=== PATIENT | female | born 1960 | race Caucasian/White ===

== ENCOUNTER 2017-01-18 11:52 | Inpatient (IN) | payer OTHER ==
[2017-01-18 14:08] VITALS: BMI 26.6
--- NOTE | 2017-01-18 16:31 | HP ---
CIWA Score - CIWA Score Nausea/Vomitin Muscle Tremors: 3 Anxiety: 3 Agitation: 2 Paroxysmal Sweats: 1-Minimal Palms Moist Orientation: 0-Oriented Tacttile Disturbances: 2-Mild Itch/Numbness/Burn Auditory Disturbances: 2-Mild Harshness/Frighten Visual Disturbances: 2-Mild Sensitivity Headache: 2-Mild CIWA-Ar Total Score: 20 Admission ROS BHS - HPI Chief Complaint: i need help to stop drinking alcohol Allergies/Adverse Reactions: Allergies Allergy/AdvReac Type Severity Reaction Status Date / Time No Known Drug Allergies Allergy Verified 01/18/17 17:10 strawberry AdvReac Severe Vomiting Verified 01/18/17 17:10 History of Present Illness: this 56 years old female with alcohol and marijuana dependence,seeking detox, last detox 07/05 [facility] hypertension,hypercholesterolemia ,borderdined diabetes mellitus no significant period of sobriety Exam Limitations: No Limitations - Ebola screening Have you traveled outside of the country in the last 21 days: No Have you had contact with anyone from an Ebola affected area: No Have you been sick,other than usual withdrawal symptoms: No - Review of Systems Constitutional: Loss of Appetite, Malaise, Night Sweats, Changes in sleep, Weakness EENT: reports: Nose Congestion Respiratory: reports: No Symptoms reported Cardiac: reports: Palpitations GI: reports: Diarrhea, Nausea, Vomiting, Abdominal cramping : reports: No Symptoms Reported Musculoskeletal: reports: Back Pain, Muscle Pain Integumentary: reports: Dryness Neuro: reports: Headache, Tremors Endocrine: reports: No Symptoms Reported Hematology: reports: No Symptoms Reported Psychiatric: reports: other Patient History - Patient Medical History Hx Anemia: No Hx Asthma: No Hx Chronic Obstructive Pulmonary Disease (COPD): No Hx Cancer: No Hx Cardiac Disorders: Yes (Cardiac cath 11/03 in [facility]) Hx Congestive Heart Failure: No Hx Hypertension: Yes (on med) Hx Hypercholesterolemia: Yes Hx Seizures: No Hx Diabetes: No Hx Gastrointestinal Disorders: No Hx Liver Disease: No Hx Genitourinary Disorders: No Hx Sexually Transmitted Disorders: No Hx Renal Disease (ESRD): No Hx Thyroid Disease: No Hx Human Immunodeficiency Virus (HIV): No (negative 12/04 last) Hx Hepatitis C: No Hx Depression: Yes Hx Suicide Attempt: No Hx Bipolar Disorder: No Hx Schizophrenia: No Other Medical History: no suicidal,no homicidal - Patient Surgical History Past Surgical History: Yes Hx Appendectomy: Yes (in 1982) Other Surgical History: microsurgery of left index in 2003 - PPD History Previous Implant?: Yes Documented Results: Negative w/o proof Implanted On Prior [facility] Admission?: No PPD to be Administered?: Yes - Reproductive History Patient is a Female of Child Bearing Age (11 -55 yrs old): No Patient : No - Smoking Cessation Smoking history: Current every day smoker Have you smoked in the past 12 months: Yes Aproximately how many cigarettes per day: 20 Hx Chewing Tobacco Use: No Initiated information on smoking cessation: Yes 'Breaking Loose' booklet given: 01/18/17 - Substance & Tx. History Hx Alcohol Use: Yes Hx Substance Use: Yes Substance Use Type: Alcohol, Marijuana Hx Substance Use Treatment: Yes (07/05 [facility]) - Substances Abused Alcohol Route: Oral Frequency: Daily Amount used: FIFTH ULISES Age of first use: 46 Date of Last Use: 01/17/17 Marijuana/Hashish Route: Smoking Frequency: 3-6 times per week Amount used: 1/2 BLUNT Age of first use: 12 Date of Last Use: 01/11/17 Family Disease History - Family Disease History Family History: Denies Admission Physical Exam S - Vital Signs Vital Signs: Vital Signs - 24 hr 01/18/17 14:04 Temperature 96.4 F L Pulse Rate 93 H Respiratory 20 Rate Blood Pressure 145/80 - Physical General Appearance: Yes: Moderate Distress, Tremorous, Irritable, Anxious HEENTM: Yes: Normocephalic, MELYSSA, Pharynx Normal, Nasal Congestion Respiratory: Yes: Lungs Clear, Normal Breath Sounds, No Respiratory Distress Neck: Yes: Within Normal Limits, Supple, Trachea in good position Breast: Yes: Breast Exam Deferred Cardiology: Yes: Within Normal Limits, Regular Rhythm, Regular Rate, S1, S2 Abdominal: Yes: Within Normal Limits, Normal Bowel Sounds, Non Tender, Flat, Soft Genitourinary: Yes: Within Normal Limits Back: Yes: Muscle Spasm Musculoskeletal: Yes: full range of Motion, Back pain, Muscle Pain Extremities: Yes: Normal Range of Motion, Tremors Neurological: Yes: dixonac operator II-XII NML intact, Alert, Motor Strength 5/5 Integumentary: Yes: Dry Lymphatic: Yes: Within Normal Limits - Diagnostic (1) Alcohol dependence with uncomplicated withdrawal Current Visit: Yes Status: Acute (2) Cannabis dependence Current Visit: Yes Status: Acute (3) Nicotine dependence Current Visit: Yes Status: Acute (4) Essential hypertension Current Visit: Yes Status: Acute (5) Hypercholesterolemia Current Visit: Yes Status: Acute (6) Depression Current Visit: Yes Status: Acute (7) Borderline diabetes mellitus Current Visit: Yes Status: Acute (8) History of appendectomy Current Visit: Yes Status: Acute Cleared for Admission S - Detox or Rehab [facility] Level of Care: Medically Managed Detox Regimen/Protocol: Librium [facility] Breath Alcohol Content Breath Alcohol Content: 0 Urine Pregancy Test - Result Urine Test Results: Negative- NO Line Present Urine Drug Screen - Results Drug Screen Negative: No Urine Drug Screen Results: THC-Marijuana
[2017-01-18] MEDS ORDERED: ACETAMINOPHEN 325 MG TABLET (FP) PO PRN (16:42)
[2017-01-18] MEDS ORDERED: MAG HYDROX/AL HYDROX/SIMETH 30 ML UNIT-DOSE CUP PO PRN (16:42)
[2017-01-18] MEDS ORDERED: hydrOXYzine PAMOATE 50 MG CAPSULE (FP) PO PRN (16:42)
[2017-01-18] MEDS ORDERED: chlordiazePOXIDE HCL 25 MG CAPSULE PO PRN (16:42)
[2017-01-18] MEDS ORDERED: P-EPHED 60MG/TRIPROLIDI 2.5MG TABLET PO PRN (16:42)
[2017-01-18] MEDS ORDERED: LOPERAMIDE HCL 2 MG CAPSULE PO PRN (16:42)
[2017-01-18] MEDS ORDERED: diphenhydrAMINE HCL 50 MG CAPSULE PO PRN (16:42)
[2017-01-18] MEDS ORDERED: MAGNESIUM HYDROX 2400MG/30ML ORAL SUSPENSION 30 ML CUP PO PRN (16:42)
[2017-01-18] MEDS ORDERED: MAGNESIUM CITRATE 300 ML BOTTLE PO PRN (16:42)
[2017-01-18] MEDS ORDERED: guaiFENesin/D-METHORPHAN HB 10 ML UNIT-DOSE CUPS PO PRN (16:42)
[2017-01-18] MEDS ORDERED: IBUPROFEN 400 MG TABLET (FP) PO PRN (16:42)
[2017-01-18] MEDS ORDERED: MENTHOL/PHENOL 1 EACH UD MM PRN (16:42)
[2017-01-18] MEDS ORDERED: chlordiazePOXIDE HCL 25 MG CAPSULE PO ONE (17:45)
[2017-01-18] MEDS: METOPROLOL TARTRATE 50 MG TABLET (FP) PO SCH (22:26)
[2017-01-18] MEDS: THIAMINE HCL 100 MG TABLET (FP) PO SCH (22:26)
[2017-01-18] MEDS: chlordiazePOXIDE HCL 25 MG CAPSULE PO SCH (22:27)
[2017-01-19] MEDS: chlordiazePOXIDE HCL 25 MG CAPSULE PO SCH ×4 (05:34→22:25)
--- NOTE | 2017-01-19 09:55 | EKG ---
Test Reason : Blood Pressure : / mmHG Vent. Rate : 074 BPM Atrial Rate : 074 BPM P-R Int : 164 ms QRS Dur : 074 ms QT Int : 416 ms P-R-T Axes : 052 049 054 degrees QTc Int : 461 ms NORMAL SINUS RHYTHM NORMAL ECG NO PREVIOUS ECGS AVAILABLE Confirmed by ALISSON PEÑA MD ([id number]) on 01/19/2017 9:54:28 AM Referred By: Confirmed By:ALISSON PEÑA MD
[2017-01-19 10:23] LABS: MCH 34.3 pg (25.7-33.7); MCHC 33.8 g/dl (32.0-36.0); MEAN CELL VOLUME 101.4 fl (80-96); MEAN PLT VOLUME 8.6 fl (7.5-11.1); PLATELET COUNT 168 K/MM3 (134-434); RDW 16.8 % (11.6-15.6); WHITE BLOOD COUNT 5.7 K/mm3 (4.0-10.0)
[2017-01-19] MEDS: PRENATAL VITAMINS W/ FOLIC ACID TABLET (FP) PO SCH (10:47)
[2017-01-19] MEDS: METOPROLOL TARTRATE 50 MG TABLET (FP) PO SCH ×2 (10:48→22:25)
[2017-01-19] MEDS: PANTOPRAZOLE 40 MG TABLET (FP) PO SCH (10:48)
[2017-01-19] MEDS: ASPIRIN 81 MG CHEWABLE TABLETS PO SCH (10:48)
[2017-01-19 10:55] LABS: ALBUMIN 4.1 g/dl (3.4-5.0); ALK PHOS 112 U/L (45-117); ANION GAP 12 (8-16); BILIRUBIN,TOTAL 0.9 mg/dL (0.2-1.0); CALCIUM 9.4 mg/dL (8.5-10.1); CO2 27 mmol/L (21-32); COCKROFT - GAULT 95.5825; CREATININE 0.8 mg/dL (0.55-1.02); GLUCOSE,RANDOM 130 mg/dL (74-106); SGOT/AST 50 U/L (15-37); SGPT/ALT 41 U/L (12-78); TOT PROT 8.3 g/dl (6.4-8.2)
--- NOTE | 2017-01-19 11:22 | PN ---
S CIWA - CIWA Score Nausea/Vomitin-No Nausea/No Vomiting Muscle Tremors: 4-Moderate,w/Arms Extend Anxiety: 3 Agitation: 4-Moderately Restless Paroxysmal Sweats: 3 Orientation: 0-Oriented Tacttile Disturbances: 0-None Auditory Disturbances: 0-None Visual Disturbances: 0-None Headache: 0-None Present CIWA-Ar Total Score: 14 BHS Progress Note (SOAP) Subjective: right shoulder discomfort sweats interrupted sleep anxiety Objective: 01/19/17 11:20 Vital Signs Temperature 98.1 F 01/19/17 10:19 Pulse Rate 93 H 01/19/17 10:19 Respiratory Rate 16 01/19/17 10:19 Blood Pressure 143/87 01/19/17 10:19 O2 Sat by Pulse Oximetry (%) Laboratory Tests 01/19/17 01/19/17 01/19/17 05:50 06:00 06:00 WBC 5.7 RBC 4.11 Hgb 14.1 Hct 41.7 MCV 101.4 H MCHC 33.8 RDW 16.8 H Plt Count 168 MPV 8.6 Sodium 137 Potassium 4.0 Chloride 98 Carbon Dioxide 27 Anion Gap 12 BUN 10 Creatinine 0.8 Creat Clearance w eGFR > 60 POC Glucometer 132 Random Glucose 130 H Calcium 9.4 Total Bilirubin 0.9 AST 50 H ALT 41 Alkaline Phosphatase 112 Total Protein 8.3 H Albumin 4.1 labs pending awake/alert ambulating no acute distress Assessment: 01/19/17 11:21 withdrawal sx Plan: continue detox increase fluids motrin/tylenol prn analgesic balm
[2017-01-19] MEDS: METHYL SALICYLATE/MENTHOL OINT 30 GM TUBE TP SCH ×2 (12:06→22:25)
--- NOTE | 2017-01-19 18:06 | CONSULT ---
[facility] Psychiatric Consult - Data Date of interview: 01/19/17 Admission source: [facility] Identifying data: First admission to [facility] for this 56 y/o female seeking detox treatment for alcohol and marijuana dependence.Patient is (for past eleven years) without children,domiciled and currently employed. Substance Abuse History: - Smoking Cessation. Smoking history: Current every day smoker. Have you smoked in the past 12 months: Yes. Aproximately how many cigarettes per day: 20. Hx Chewing Tobacco Use: No. Initiated information on smoking cessation: Yes. 'Breaking Loose' booklet given: 01/18/17. - Substance & Tx. History. Hx Alcohol Use: Yes. Hx Substance Use: Yes. Substance Use Type : Alcohol, Marijuana. Hx Substance Use Treatment: Yes (07/05 [facility]). - Substances Abused. Alcohol. Route: Oral. Frequency: Daily. Amount used: FIFTH ULISES. Age of first use: 46. Date of Last Use: 01/17/17. Marijuana/ Hashish. Route: Smoking. Frequency: 3-6 times per week. Amount used: 1/2 BLUNT. Age of first use: 12. Date of Last Use: 01/11/17. Confirmed by the patient. Medical History: Diabetes mellitus (borderline),hypertension, hypercholesterolemia and a recent history of cardiac catheterization (at [facility] on 10/2016). Psychiatric History: No reported history of psychiatric hospitalizations (CPEP visits at [facility] in the context of alcohol intoxication/altered mental status).Ms Omer admits to a past history of OPD care to address depression/ anxiety.She used to be on celexa,buspirone and vistaril.Patient used to be followed up at the [facility] OPD clinic.Stopped several months ago.She ,however,indicates that this regimen was beneficial and,in this interview,she requests to resume celexa and buspar.Survey of recent pharmacy claims confirms previous scripts for both drugs.No history of suicide attempts. Physical/Sexual Abuse/Trauma History: Patient denies. Additional Comment: Urine Drug Screen Results: THC-Marijuana.Noted. Mental Status Exam - Mental Status Exam Alert and Oriented to: Time, Place, Person Cognitive Function: Good Patient Appearance: Well Groomed Mood: Hopeful, Euthymic Affect: Appropriate, Normal Range Patient Behavior: Fatigued, Appropriate, Cooperative Speech Pattern: Clear Voice Loudness: Normal Thought Process: Goal Oriented Thought Disorder: Not Present Hallucinations: Denies Suicidal Ideation: Denies Homicidal Ideation: Denies Insight/Judgement: Fair Sleep: Poorly, Difficulty falling asleep Appetite: Good Muscle strength/Tone: Normal Gait/Station: Normal Psychiatric Findings - Problem List (Smock 1, 2,3) (1) Alcohol dependence with uncomplicated withdrawal Current Visit: Yes Status: Acute (2) Cannabis dependence Current Visit: Yes Status: Acute (3) Nicotine dependence Current Visit: Yes Status: Acute (4) Substance induced mood disorder Current Visit: Yes Status: Acute (5) Mood disorder Current Visit: Yes Status: Chronic (6) Borderline diabetes mellitus Current Visit: Yes Status: Chronic (7) Essential hypertension Current Visit: Yes Status: Chronic (8) History of appendectomy Current Visit: No Status: Chronic (9) Hypercholesterolemia Current Visit: Yes Status: Chronic - Initial Treatment Plan Initial Treatment Plan: Psychoeducation.Detoxification.Medications : celexa 10 mg po daily + buspar 5 mg po bid.Side effects/benefits discussed with the patient.She agrees to follow this plan of care.Observation.
[2017-01-19] MEDS: ZOLPIDEM TARTRATE 5 MG TABLET PO PRN (22:25)
[2017-01-19] MEDS: THIAMINE HCL 100 MG TABLET (FP) PO SCH (22:25)
[2017-01-19] MEDS: busPIRone HCL 5 MG TABLET PO SCH (22:26)
[2017-01-20] MEDS: chlordiazePOXIDE HCL 25 MG CAPSULE PO SCH ×3 (05:52→17:44)
[2017-01-20] MEDS: PRENATAL VITAMINS W/ FOLIC ACID TABLET (FP) PO SCH (10:42)
[2017-01-20] MEDS: ASPIRIN 81 MG CHEWABLE TABLETS PO SCH (10:42)
[2017-01-20] MEDS: METOPROLOL TARTRATE 50 MG TABLET (FP) PO SCH ×2 (10:42→22:25)
[2017-01-20] MEDS: CITALOPRAM HYDROBROMIDE 10 MG TABLET (FP) PO SCH (10:42)
[2017-01-20] MEDS: PANTOPRAZOLE 40 MG TABLET (FP) PO SCH (10:42)
[2017-01-20] MEDS: busPIRone HCL 5 MG TABLET PO SCH ×2 (10:42→22:25)
[2017-01-20] MEDS: METHYL SALICYLATE/MENTHOL OINT 30 GM TUBE TP SCH ×2 (10:44→22:28)
--- NOTE | 2017-01-20 13:48 | PN ---
S CIWA - CIWA Score Nausea/Vomitin-No Nausea/No Vomiting Muscle Tremors: 3 Anxiety: 4-Mod. Anxious/Guarded Agitation: 3 Paroxysmal Sweats: 3 Orientation: 0-Oriented Tacttile Disturbances: 0-None Auditory Disturbances: 0-None Visual Disturbances: 0-None Headache: 0-None Present CIWA-Ar Total Score: 13 BHS Progress Note (SOAP) Subjective: Anxiety,tremors,sweating,interrupted sleep,restless Objective: 01/20/17 13:47 Vital Signs - 8 hr 01/20/17 01/20/17 06:51 10:00 Temperature 98.3 F 98.1 F Pulse Rate 79 97 H Respiratory 18 18 Rate Blood Pressure 103/67 125/94 Laboratory Tests 01/19/17 01/19/17 01/19/17 05:50 06:00 06:00 WBC 5.7 RBC 4.11 Hgb 14.1 Hct 41.7 MCV 101.4 H MCHC 33.8 RDW 16.8 H Plt Count 168 MPV 8.6 Sodium 137 Potassium 4.0 Chloride 98 Carbon Dioxide 27 Anion Gap 12 BUN 10 Creatinine 0.8 Creat Clearance w eGFR > 60 POC Glucometer 132 Random Glucose 130 H Calcium 9.4 Total Bilirubin 0.9 AST 50 H ALT 41 Alkaline Phosphatase 112 Total Protein 8.3 H Albumin 4.1 RPR Titer 01/19/17 01/19/17 01/20/17 06:00 16:25 05:51 WBC RBC Hgb Hct MCV MCHC RDW Plt Count MPV Sodium Potassium Chloride Carbon Dioxide Anion Gap BUN Creatinine Creat Clearance w eGFR POC Glucometer 138 147 Random Glucose Calcium Total Bilirubin AST ALT Alkaline Phosphatase Total Protein Albumin RPR Titer Nonreactive labs noted Assessment: 01/20/17 13:47 Withdrawal sx. Plan: Continue detox
[2017-01-20] MEDS: chlordiazePOXIDE 5 MG CAPSULE PO SCH (22:24)
[2017-01-20] MEDS: THIAMINE HCL 100 MG TABLET (FP) PO SCH (22:25)
[2017-01-21] MEDS: chlordiazePOXIDE 5 MG CAPSULE PO SCH ×3 (05:58→17:15)
[2017-01-21] MEDS: PRENATAL VITAMINS W/ FOLIC ACID TABLET (FP) PO SCH (10:27)
[2017-01-21] MEDS: METOPROLOL TARTRATE 50 MG TABLET (FP) PO SCH ×2 (10:27→22:25)
[2017-01-21] MEDS: CITALOPRAM HYDROBROMIDE 10 MG TABLET (FP) PO SCH (10:27)
[2017-01-21] MEDS: ASPIRIN 81 MG CHEWABLE TABLETS PO SCH (10:27)
[2017-01-21] MEDS: busPIRone HCL 5 MG TABLET PO SCH ×2 (10:27→22:24)
[2017-01-21] MEDS: PANTOPRAZOLE 40 MG TABLET (FP) PO SCH (10:28)
[2017-01-21] MEDS: METHYL SALICYLATE/MENTHOL OINT 30 GM TUBE TP SCH ×2 (10:30→22:24)
--- NOTE | 2017-01-21 10:41 | PN ---
BHS Progress Note (SOAP) Subjective: Sweating,interrupted sleep,restless Objective: 01/21/17 10:40 Vital Signs - 8 hr 01/21/17 01/21/17 01/21/17 03:30 06:00 09:59 Temperature 97.7 F 98.2 F Pulse Rate 80 104 H Respiratory 18 18 20 Rate Blood Pressure 117/76 118/82 Laboratory Last Values WBC 5.7 K/mm3 (4.0-10.0) 01/19/17 06:00 RBC 4.11 M/mm3 (3.60-5.2) 01/19/17 06:00 Hgb 14.1 GM/dL (10.7-15.3) 01/19/17 06:00 Hct 41.7 % (32.4-45.2) 01/19/17 06:00 MCV 101.4 fl (80-96) H 01/19/17 06:00 MCHC 33.8 g/dl (32.0-36.0) 01/19/17 06:00 RDW 16.8 % (11.6-15.6) H 01/19/17 06:00 Plt Count 168 K/MM3 (134-434) 01/19/17 06:00 MPV 8.6 fl (7.5-11.1) 01/19/17 06:00 Sodium 137 mmol/L (136-145) 01/19/17 06:00 Potassium 4.0 mmol/L (3.5-5.1) 01/19/17 06:00 Chloride 98 mmol/L (98-107) 01/19/17 06:00 Carbon Dioxide 27 mmol/L (21-32) 01/19/17 06:00 Anion Gap 12 (8-16) 01/19/17 06:00 BUN 10 mg/dL (7-18) 01/19/17 06:00 Creatinine 0.8 mg/dL (0.55-1.02) 01/19/17 06:00 Creat Clearance w eGFR > 60 (>60) 01/19/17 06:00 POC Glucometer 183 UNITS (()) 01/21/17 06:32 Random Glucose 130 mg/dL (74-106) H 01/19/17 06:00 Calcium 9.4 mg/dL (8.5-10.1) 01/19/17 06:00 Total Bilirubin 0.9 mg/dL (0.2-1.0) 01/19/17 06:00 AST 50 U/L (15-37) H 01/19/17 06:00 ALT 41 U/L (12-78) 01/19/17 06:00 Alkaline Phosphatase 112 U/L (45-117) 01/19/17 06:00 Total Protein 8.3 g/dl (6.4-8.2) H 01/19/17 06:00 Albumin 4.1 g/dl (3.4-5.0) 01/19/17 06:00 RPR Titer Nonreactive (NONREACTIVE) 01/19/17 06:00 labs noted Assessment: 01/21/17 10:40 Withdrawal sx. Plan: Continue detox
[2017-01-21 11:14] LABS: URINE APPEARANCE SLCLOUDY; URINE BILIRUBIN NEGATIVE (NEGATIVE); URINE BLOOD NEGATIVE (NEGATIVE); URINE COLOR YELLOW; URINE GLUCOSE (UA) NEGATIVE (NEGATIVE); URINE KETONE NEGATIVE (NEGATIVE); URINE NITRITE POSITIVE (NEGATIVE); URINE PROTEIN NEGATIVE (NEGATIVE); URINE UROBILINOGEN NEGATIVE E.U./dl (0.2-1.0)
[2017-01-21 11:34] LABS: URINE LEUK ESTERASE 3+ (NEGATIVE)
[2017-01-21 11:52] LABS: URINE MUCUS RARE; URINE WBC 105 /hpf (3-5)
[2017-01-21 11:55] LABS: URINE BACTERIA MANY /hpf (NONE SEEN)
[2017-01-21 21:57] VITALS: TEMP 97.7
[2017-01-21] MEDS: THIAMINE HCL 100 MG TABLET (FP) PO SCH (22:24)
[2017-01-21] MEDS: ZOLPIDEM TARTRATE 5 MG TABLET PO PRN (22:24)
[2017-01-21] MEDS: chlordiazePOXIDE HCL 10 MG CAPSULE PO SCH (22:39)
[2017-01-22] MEDS: chlordiazePOXIDE HCL 10 MG CAPSULE PO SCH (05:22)
[2017-01-22 06:46] VITALS: BP 120/75; PULSE 98
--- NOTE | 2017-01-22 08:36 | DS ---
[facility] Detox Discharge Summary Admission Date: 01/18/17 Discharge Date: 01/22/17 - History Present History: Alcohol Dependence, Cannabis Dependence - Physical Exam Results Vital Signs: Vital Signs Temperature 97.7 F 01/22/17 06:45 Pulse Rate 98 H 01/22/17 06:45 Respiratory Rate 20 01/22/17 06:45 Blood Pressure 120/75 01/22/17 06:45 O2 Sat by Pulse Oximetry (%) - Treatment Hospital Course: Detox Protocol Followed, Detoxed Safely, Responded well, Discharged Condition Good, Rehab Referral Accepted - Medication Discharge Medications: Ambulatory Orders Aspirin [ASA -] 81 mg PO DAILY 01/18/17 Buspirone HCl [Buspar -] 10 mg PO BID 01/18/17 Citalopram Hydrobromide [Celexa -] 20 mg PO DAILY 01/18/17 Hydroxyzine HCl [Atarax -] 50 mg PO HS 01/18/17 Metoprolol Tartrate [Lopressor -] 100 mg PO BID 01/18/17 Pantoprazole Sodium [Protonix -] 40 mg PO DAILY 01/18/17 - Diagnosis (1) Alcohol dependence with uncomplicated withdrawal Current Visit: Yes Status: Chronic (2) Cannabis dependence Current Visit: Yes Status: Chronic (3) Depression Current Visit: Yes Status: Chronic (4) Nicotine dependence Current Visit: Yes Status: Chronic Qualifiers: Nicotine product type: cigarettes Substance use status: uncomplicated Qualified Code(s): F17.210 - Nicotine dependence, cigarettes, uncomplicated (5) Substance induced mood disorder Current Visit: Yes Status: Chronic (6) Borderline diabetes mellitus Current Visit: Yes Status: Chronic (7) Essential hypertension Current Visit: Yes Status: Chronic (8) Hypercholesterolemia Current Visit: Yes Status: Chronic (9) Mood disorder Current Visit: Yes Status: Chronic (10) History of appendectomy Current Visit: No Status: Chronic - AMA Did Patient Leave Against Medical Advice: No
[2017-01-22] MEDS: busPIRone HCL 5 MG TABLET PO SCH (09:06)
[2017-01-22] MEDS: CITALOPRAM HYDROBROMIDE 10 MG TABLET (FP) PO SCH (09:06)
[2017-01-22] MEDS: PANTOPRAZOLE 40 MG TABLET (FP) PO SCH (09:06)
[2017-01-22] MEDS: PRENATAL VITAMINS W/ FOLIC ACID TABLET (FP) PO SCH (09:06)
[2017-01-22] MEDS: ASPIRIN 81 MG CHEWABLE TABLETS PO SCH (09:06)
[2017-01-22] MEDS: METOPROLOL TARTRATE 50 MG TABLET (FP) PO SCH (09:07)
== END 2017-01-22 09:20 | disposition home or self-care (01) | DRG 897 ==
LOC: YASAS 11:52 → Y6N 17:16
PROVIDERS: ADMIT Internal Medicine; ATTEND Internal Medicine
PROC: HZ2ZZZZ Detoxification Services for Substance Abuse Treatment (ICD-10-PCS; principal; 2017-01-22)
DX: F10.230 Alcohol dependence with withdrawal, uncomplicated (principal); F12.20 Cannabis dependence, uncomplicated; F17.210 Nicotine dependence, cigarettes, uncomplicated; F32.9 Major depressive disorder, single episode, unspecified; F19.24 Other psychoactive substance dependence with psychoactive substance-induced mood disorder; F39 Unspecified mood [affective] disorder; I10 Essential (primary) hypertension; E78.00 Pure hypercholesterolemia, unspecified; Z98.61 Coronary angioplasty status
CPT/HCPCS: 36415; 80053; 81003; 81015; 85027; 86593; 93005; 93010